=== PATIENT | female | born 1980 | race Caucasian/White ===

== ENCOUNTER 2018-11-02 06:06 | Emergency (ER) | payer MEDICAID ==
--- NOTE | 2018-11-02 07:47 | EDM.PDOC ---
ED HPI GENERAL MEDICAL PROBLEM - General Chief Complaint: Lower Extremity Injury/Pain Stated Complaint: ROLLED LEFT ANKLE Time Seen by Provider: 11/02/18 07:00 Source of Information: Reports: Patient History Limitations: Reports: No Limitations - History of Present Illness INITIAL COMMENTS - FREE TEXT/NARRATIVE: pt was walking last nite and twisted her ankle. She is having pain in the lateral ankle and some in the foot. She is having pain with walking. Onset: Other (happened last nite. ) Duration: Hour(s): Location: Reports: Lower Extremity, Left Associated Symptoms: Reports: No Other Symptoms Left Ankle Pain Score (Numeric/FACES): 9 - Related Data Allergies Allergy/AdvReac Type Severity Reaction Status Date / Time No Known Allergies Allergy Verified 11/02/18 06:30 Home Meds: Home Meds NK [No Known Home Meds] 11/02/18 [History] Past Medical History HEENT History: Reports: Hard of Hearing, Impaired Vision [employer] History: Reports: - Past Surgical History Other Musculoskeletal Surgeries/Procedures:: hammer toes; bunion removal Social & Family History - Tobacco Use Smoking Status *Q: Never Smoker - Caffeine Use Caffeine Use: Reports: Coffee - Recreational Drug Use Recreational Drug Use: No Review of Systems - Review of Systems Review Of Systems: See Below (1) Constitutional: Reports: No Symptoms Eyes: Reports: No Symptoms Ears: Reports: No Symptoms Nose: Reports: No Symptoms Mouth/Throat: Reports: No Symptoms Respiratory: Reports: No Symptoms Cardiovascular: Reports: No Symptoms GI/Abdominal: Reports: No Symptoms Musculoskeletal: Reports: Other (pain and swelling in the left ankle) ED EXAM, GENERAL - Physical Exam Exam: See Below Free Text/Narrative:: Pt was walking last nite and she rolled her left ankle inward. Exam Limited By: No Limitations General Appearance: Alert, Mild Distress Ears: Normal TMs Nose: Normal Inspection Throat/Mouth: Normal Inspection Head: Atraumatic Neck: Normal Inspection Respiratory/Chest: No Respiratory Distress Cardiovascular: Regular Rate, Rhythm GI/Abdominal: Soft, Non-Tender (Female) Exam: Deferred Rectal (Female) Exam: Deferred Back Exam: Normal Inspection Extremities: Other (left ankle is swollen and very tender laterally. She does have some tenderness in the foot. ) Neurological: Alert, Oriented, Normal Cognition Course - Vital Signs Last Recorded V/S: Last Vital Signs Temp 36.2 C 11/02/18 06:27 Pulse 78 11/02/18 06:27 Resp 14 11/02/18 06:27 BP 114/85 11/02/18 06:27 Pulse Ox 98 11/02/18 06:27 - Orders/Labs/Meds Orders: Active Orders 24 hr Category Date Time Status Ankle Min 3V Lt [CR] Stat Exams 11/02/18 07:16 Taken Foot 2V Lt [CR] Stat Exams 11/02/18 07:16 Taken - Re-Assessments/Exams Free Text/Narrative Re-Assessment/Exam: 11/02/18 07:55 xray of the ankle and foot was obtained. She had a very mildly displaced fracture of the left fibula. Her foot revealed no fractures. Departure - Departure Time of Disposition: 07:44 Disposition: Home, Self-Care 01 Condition: Fair Clinical Impression: Left fibular fracture - Discharge Information Referrals: PCP,None [Primary Care Provider] - Forms: ED Department Discharge Care Plan Goals: cool pack--send refillable ice packs with the pt, elevate, cam walker, crutches , motrin 600mg q6h prn for pain, norco 5/325 q6h prn for severe pain #8, ortho appt Tuesday - My Orders Last 24 Hours: My Active Orders 11/02/18 07:16 Ankle Min 3V Lt [CR] Stat Foot 2V Lt [CR] Stat - Assessment/Plan Last 24 Hours: My Active Orders 11/02/18 07:16 Ankle Min 3V Lt [CR] Stat Foot 2V Lt [CR] Stat
[2018-11-02] MEDS ORDERED: Ibuprofen 600 MG Tab PO ONE (07:51)
--- NOTE | 2018-11-02 08:18 | CRLCR ---
Addendum: On further review there is a nondisplaced distal fibular fracture. Dictated by Malorie Reardon MD @ Nov 02 2018 8:17AM Signed by Dr. Malorie Reardon @ Nov 02 2018 8:17AM
--- NOTE | 2018-11-02 08:18 | CRLCR ---
Twisted ankle. Three views of the left ankle. Findings: Nondisplaced minimally comminuted distal fibular fracture. Soft tissue swelling. Talar dome is intact. Ankle mortise is preserved. Dictated by Malorie Reardon MD @ Nov 02 2018 8:16AM Signed by Dr. Malorie Reardon @ Nov 02 2018 8:17AM
== END 2018-11-02 08:09 | disposition home or self-care (01) ==
LOC: JP.ED 06:06
DX: S82.832A Other fracture of upper and lower end of left fibula, initial encounter for closed fracture (principal); X50.9XXA Other and unspecified overexertion or strenuous movements or postures, initial encounter
CPT/HCPCS: 73610-LT; 73620-LT; 99283-25